=== PATIENT | male | born 1990 | race Caucasian/White ===

== ENCOUNTER 2020-03-24 21:06 | Emergency (ER) | payer SELFPAY ==
--- NOTE | 2020-03-24 22:14 | EDM.PDOC ---
ED HPI GENERAL MEDICAL PROBLEM - General Chief Complaint: Head Injury Stated Complaint: HEAD INJURY Time Seen by Provider: 03/24/20 21:20 Source of Information: Reports: Patient History Limitations: Reports: No Limitations - History of Present Illness INITIAL COMMENTS - FREE TEXT/NARRATIVE: Pt bucked off a horse 03/22/20 Hit his head against horses head and then landed flat on his back and hit head against ground States he laid there about 10 minutes per report Does no recall events Now with [facility] Has 4 previous concussions Also with left rib pain Onset: Today, Sudden, Gradual Duration: Day(s): Location: Reports: Head, Chest Context: Reports: Trauma Associated Symptoms: Reports: Headaches Left Chest Pain Score (Numeric/FACES): 3 - Related Data Allergies Allergy/AdvReac Type Severity Reaction Status Date / Time latex Allergy Rash Verified 03/24/20 21:08 Past Medical History Musculoskeletal History: Reports: Back Pain, Chronic, Fracture Neurological History: Reports: Concussion, Migraines, Other (See Below) Psychiatric History: Reports: Anxiety - Past Surgical History Neurological Surgical History: Reports: None Musculoskeletal Surgical History: Reports: None Social & Family History - Tobacco Use Smoking Status *Q: Current Every Day Smoker Years of Tobacco use: 16 Packs/Tins Daily: 0.2 - Caffeine Use Caffeine Use: Reports: Coffee, Energy Drinks, Soda, Tea - Recreational Drug Use Recreational Drug Use: No ED ROS GENERAL - Review of Systems Review Of Systems: See Below HEENT: Reports: No Symptoms Respiratory: Reports: No Symptoms Cardiovascular: Reports: No Symptoms, Other GI/Abdominal: Reports: No Symptoms Musculoskeletal: Reports: Other (Left rib pain) Neurological: Reports: Headache ED EXAM, HEAD INJURY - Physical Exam Exam: See Below Exam Limited By: No Limitations General Appearance: Alert, WD/WN, Mild Distress Head: Atraumatic Eyes: Bilateral Eye: EOMI, PERRL Ears: Normal TMs Nose: Normal Inspection Throat/Mouth: Normal Oropharynx Neck: Non-Tender Respiratory: Lungs Clear, Other (Left rib pain) Cardiovascular: Regular Rate, Rhythm GI/Abdominal Exam: Soft, Non-Tender Back Exam: Normal Inspection Extremities: Normal Inspection Neurologic: No Motor/Sensory Deficits, Normal Mood/Affect, Oriented x 3 Course - Vital Signs Last Recorded V/S: Last Vital Signs Temp 97.5 F 03/24/20 21:12 Pulse 98 03/24/20 21:12 Resp 12 03/24/20 21:12 BP 113/82 03/24/20 21:12 Pulse Ox 99 03/24/20 21:12 - Orders/Labs/Meds Orders: Active Orders 24 hr Category Date Time Status Head wo Cont [CT] Stat Exams 03/24/20 21:08 Taken Ribs 2V w Chest Lt [CR] Stat Exams 03/24/20 21:21 Taken - Re-Assessments/Exams Free Text/Narrative Re-Assessment/Exam: 03/24/20 22:13 CT: Negative per radiologist CXR No obvious fractures Departure - Departure Time of Disposition: 22:15 Disposition: Home, Self-Care 01 Clinical Impression: Concussion with less than 1 hour loss of consciousness - Discharge Information *PRESCRIPTION DRUG MONITORING PROGRAM REVIEWED*: Not Applicable *COPY OF PRESCRIPTION DRUG MONITORING REPORT IN PATIENT CHARLEEN: Not Applicable Instructions: Head Injury, Adult, [id number], Concussion, Adult, [id number], Post-Concussion Syndrome, [id number] Referrals: PCP,None [Primary Care Provider] - Additional Instructions: Ice as needed Activity as tolerated Tylenol or Motrin as needed Sepsis Event Note (ED) - Evaluation Sepsis Screening Result: No Definite Risk - Focused Exam Vital Signs: Vital Signs Temp Pulse Resp BP Pulse Ox 03/24/20 21:12 97.5 F 98 12 113/82 99 - My Orders Last 24 Hours: My Active Orders 03/24/20 21:08 Head wo Cont [CT] Stat 03/24/20 21:21 Ribs 2V w Chest Lt [CR] Stat - Assessment/Plan Last 24 Hours: My Active Orders 03/24/20 21:08 Head wo Cont [CT] Stat 03/24/20 21:21 Ribs 2V w Chest Lt [CR] Stat
== END 2020-03-24 22:16 | disposition home or self-care (01) ==
LOC: LL.ED 21:06
DX: S06.0X9A Concussion with loss of consciousness of unspecified duration, initial encounter (principal); R07.81 Pleurodynia; F17.210 Nicotine dependence, cigarettes, uncomplicated; Z91.040 Latex allergy status; V80.010A Animal-rider injured by fall from or being thrown from horse in noncollision accident, initial encounter
CPT/HCPCS: 70450; 71101-LT; 99284-25

== ENCOUNTER 2020-04-23 21:29 | Emergency (ER) | payer SELFPAY ==
--- NOTE | 2020-04-23 21:50 | EDM.PDOC ---
ED HPI GENERAL MEDICAL PROBLEM - General Chief Complaint: General Stated Complaint: facial sores Time Seen by Provider: 04/23/20 21:42 Source of Information: Reports: Patient, Old Records ([facility] EMR. No paper hospital chart available.) History Limitations: Reports: No Limitations - History of Present Illness INITIAL COMMENTS - FREE TEXT/NARRATIVE: Patient drove himself to the emergency room via private automobile for evaluation of progressive sores on his right cheek, right nuchal region and also right jawline with symptoms present during the last couple weeks however progressive during the last few days, including some purulent drainage when he expresses these lesions. No history of injury, foreign body, etc. He does use OTC ibuprofen and Tylenol for pain control for these lesions. No recent history of abdominal pain, heartburn, nausea, diarrhea, melena, gross hematochezia, or any food intolerance, including fatty foods, etc.. The patient denies any chest pain/pressure, heart flutter, dizziness, orthostasis, orthopnea, diaphoresis, paresthesias, recent decreased exercise tolerance, or any other anginal-type symptoms. 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 Onset: Gradual, Other (As above) Duration: Week(s):, Getting Worse Location: Reports: Face, Neck Quality: Reports: Ache Severity: Moderate Improves with: Reports: None Worsens with: Reports: None Context: Reports: Other (As above). Denies: Sick Contact, Trauma Associated Symptoms: Denies: Confusion, Chest Pain, Cough, Diaphoresis, Fever/Chills, Headaches, Loss of Appetite, Nausea/Vomiting, Shortness of Breath, Syncope, Weakness Treatments SAFETY ADMIN ASSISTANT: Reports: Acetaminophen, NSAIDS Face/Facial Pain Score (Numeric/FACES): 6 - Related Data Allergies Allergy/AdvReac Type Severity Reaction Status Date / Time latex Allergy Rash Verified 04/23/20 21:56 Home Meds: Home Meds Doxycycline [Vibramycin] 100 mg PO BID #20 cap 04/23/20 [Rx] Past Medical History Musculoskeletal History: Reports: Back Pain, Chronic, Fracture Neurological History: Reports: Concussion, Headaches, Chronic, Migraines, Other (See Below) Other Neuro History: Head concussion secondary to horse injury on 03/24/2020. Psychiatric History: Reports: Anxiety, Depression - Past Surgical History Neurological Surgical History: Reports: None Musculoskeletal Surgical History: Reports: None - Past Imaging History Past Imaging History: Reports: CAT Scan (Negative CT scan of the head on 03/24/2020.) Social & Family History - Tobacco Use Tobacco Use Status *Q: Current Every Day Tobacco User Tobacco Use Within Last Twelve Months: Cigarettes Years of Tobacco use: 15 Packs/Tins Daily: 1 Packs/Tins Daily Comment: Started smoking at age 15 with maximum use of 2 packs/day. 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 ED EXAM, GENERAL - Physical Exam Exam: See Below Exam Limited By: No Limitations General Appearance: Alert, WD/WN, No Apparent Distress Head: Facial Swelling (1 cm cystic lesion over the right temporal region with purulent drainage but no lymphangitis), Facial Tenderness (Mild localized tenderness at cellulitis site). No: Sinus Tenderness Neck: Supple, Full Range of Motion, Other (1 cm in diameter cystic lesion consistent with acne over the right submandibular arch with additional 0.5 cm diameter similar type lesion over the right nuchal region with no drainage, l ymphangitis, local warming, etc. Mild localized tenderness over acne sites.). No: Lymphadenopathy (L), Lymphadenopathy (R) Respiratory/Chest: No Respiratory Distress, Lungs Clear, Normal Breath Sounds, No Accessory Muscle Use, Chest Non-Tender Cardiovascular: Normal Peripheral Pulses, Regular Rate, Rhythm, No Edema, No Gallop, No JVD, No Murmur, No Rub. No: Gallop/S3, Gallop/S4 Peripheral Pulses: 2+: Radial (L), Radial (R) GI/Abdominal: Normal Bowel Sounds, Soft, Non-Tender, No Organomegaly, No Distention, No Abnormal Bruit, No Mass. No: Guarding (Male) Exam: Deferred Rectal (Males) Exam: Deferred Back Exam: Normal Inspection, Full Range of Motion. No: CVA Tenderness (L), CVA Tenderness (R), Muscle Spasm Extremities: Normal Inspection, Normal Range of Motion, Non-Tender, No Pedal E sonam, Normal Capillary Refill. No: Soco's Sign Neurological: Alert, Oriented, CN II-XII Intact, Normal Cognition, Normal Gait, No Motor/Sensory Deficits Psychiatric: Normal Affect, Normal Mood Skin Exam: No Rash, Stud(s) (Multiple), Tattoo(s) (Multiple), Wound/Incision (As above). No: Diaphoretic, Erythema, Increased Warmth, Lymphangitis Course - Orders/Labs/Meds Labs: Wound specimen collected from right cheek lesion for Gram stain, culture, and sensitivity with results pending Meds: Medications Discontinued Medications Generic Name Dose Route Start Last Admin Trade Name Freq PRN Reason Stop Dose Admin Doxycycline Monohydrate 100 mg 04/23/20 21:52 04/23/20 22:05 Doxycycline Monohydrate PO 04/23/20 21:53 100 mg ONETIME ONE Administration - Radiology Interpretation Free Text/Narrative:: None Departure - Departure Time of Disposition: 22:10 Disposition: Home, Self-Care 01 Clinical Impression: Tobacco abuse counseling, Elevated blood pressure reading Cellulitis Qualifiers: Site of cellulitis: face Qualified Code(s): L03.211 - Cellulitis of face - Discharge Information *PRESCRIPTION DRUG MONITORING PROGRAM REVIEWED*: Not Applicable *COPY OF PRESCRIPTION DRUG MONITORING REPORT IN PATIENT CHARLEEN: Not Applicable Prescriptions: Doxycycline [Vibramycin] 100 mg PO BID #20 cap Instructions: Steps to Quit Smoking, [id number], Health Risks of Smoking, Cellulitis, Adult, [id number] Referrals: PCP,None [Primary Care Provider] - Forms: ED Department Discharge, ED Return to Work/School Form Additional Instructions: 1. Follow up with your regular provider in 10-14 days as needed, if symptoms persist. Bring these discharge instructions with you to that visit.. 2. Tylenol 650 mg by mouth every 4 hours and/or OTC ibuprofen 2-3 tabs by mouth every 6 hours with food as directed./needed. You may stagger these medications for 48-72 hours only, which essentially means that you are receiving a pain medication about every 2 hours. 3. Antibacterial soap wash/soak with subsequent antibacterial dressing such as Neosporin, etc. as directed 2 times per day until the wound site completely heals. Keep the area clean and dry with activity restrictions as discussed. Never use hydrogen peroxide for wound care. 4. Work excuse- See Form 5. Stop all tobacco use [place] as directed/per provided information and consider contacting [employer]uit [employer]ne, etc.. 6. Immediately after this visit verify that your cellular telephone's voicemail has been activated and is empty. Also verify that your home telephone's answering machine is operating properly and has space to receive messages. Note that it is sometimes necessary for us to be able to contact you at a later date to discuss your medical care. 7. Please remember that we are ALWAYS here for you and want to answer any questions you may have. Feel free to call the hospital any time and we call you back [place]. 8. Continue to observe blood pressures closely through your regular provider. - Problem List & Annotations (1) Cellulitis SNOMED Code(s): 943641715 Code(s): L03.90 - CELLULITIS, UNSPECIFIED Status: Acute Priority: High Onset Date: ~04/23/20 Annotation/Comment:: Doxycycline therapy initiated in the emergency room. The patient did not wish to have an IM injection of Rocephin, etc.. Wound care extensively discussed with the patient cautioned not to squeeze the above lesions, which are consistent with probable acne and possible beginning abscess formations. Work excuse provided. Qualifiers: Site of cellulitis: face Qualified Code(s): L03.211 - Cellulitis of face (2) Elevated blood pressure reading SNOMED Code(s): 82283248 Code(s): R03.0 - ELEVATED BLOOD-PRESSURE READING, W/O DIAGNOSIS OF HTN Status: Acute Priority: High Onset Date: 04/23/20 Annotation/Comment:: Elevated blood pressure reading with patient using significant amounts of caffeine. He was cautioned not to use any energy drinks and decrease his caffeine use. No previous history of hypertension. Possible mild anxiety component based on medical records. Continue to observe closely by his regular provider. (3) Tobacco abuse counseling SNOMED Code(s): 104630910, 660714656, [id number] Code(s): Z71.6 - TOBACCO ABUSE COUNSELING Status: Chronic Priority: Medium Annotation/Comment:: Tobacco cessation strongly encouraged with information provided to the patient. - Problem List Review Problem List Initiated/Reviewed/Updated: Yes - Assessment/Plan Assessment:: As above Plan: As above. Extensive precautions were given to the patient, who is in agreement with the treatment plan. See Patient Instructions for further treatment and plan.
[2020-04-23] MEDS ORDERED: Doxycycline Monohydrate 100 MG Cap PO ONE (21:52)
== END 2020-04-23 22:10 | disposition home or self-care (01) ==
LOC: LL.ED 21:29
DX: L03.211 Cellulitis of face (principal); R03.0 Elevated blood-pressure reading, without diagnosis of hypertension; Z71.6 Tobacco abuse counseling; F17.210 Nicotine dependence, cigarettes, uncomplicated; Z91.040 Latex allergy status
CPT/HCPCS: 87070; 87077; 87186; 87205; 99283; A9270-GY